=== PATIENT | female | born 1945 | race Caucasian/White ===

== ENCOUNTER 2018-03-24 18:59 | Observation (INO) ==
--- NOTE | 2018-03-24 19:08 | Emergency Department Note ---
Disposition Clinical Impression: A-fib, Chest pain, Chest wall pain, History of DVT (deep vein thrombosis) Disposition: Admitted As Inpatient Condition: Fair General Adult HPI - General Stated complaint: "afib,CP,sob" Time Seen by Provider: 03/24/18 19:02 - Related Data Home Medications Medication Instructions Recorded Confirmed Cholecalciferol (D-3) [Vitamin D] 1,000 unit PO DAILY 05/12/16 03/24/18 Levothyroxine [Synthroid] 125 mcg PO DAILY 05/12/16 03/24/18 Sertraline [Zoloft] 100 mg PO DAILY 05/12/16 03/24/18 metFORMIN [Glucophage] 500 mg PO DAILY 05/12/16 03/24/18 Albuterol Sulfate [Ventolin Hfa] 2 puff IH Q6H PRN 03/02/18 03/24/18 Calcium Carbonate/Vitamin D3 1 tab PO DAILY 03/02/18 03/24/18 [Calcium 500 + Vit D 200 Caplet] Ferrous Sulfate [Iron] 325 mg PO DAILY 03/02/18 03/24/18 Meloxicam [Meloxicam] 7.5 mg PO DAILY 03/02/18 03/24/18 Pantoprazole Sodium 40 mg PO DAILY 03/02/18 03/24/18 Rosuvastatin Calcium [Rosuvastatin 40 mg PO DAILY 03/02/18 03/24/18 Calcium] Tiotropium [Spiriva] 1 puff IH DAILY 03/02/18 03/24/18 Allergies Allergy/AdvReac Type Severity Reaction Status Date / Time doxycycline AdvReac Vomiting Verified 03/24/18 12:26 antihistamine AdvReac See Uncoded 10/02/16 16:44 Comments Past Medical History - Past Medical History Medical history: Reports: cancer, COPD, diabetes, GERD Surgical history: Reports: appendectomy, cataract, hysterectomy, knee replacement, orthopedic, other Psychiatric history: Reports: anxiety - Social History Smoking Status: Never smoker Smokeless Tobacco Status: No Alcohol use: Reports: none Drug use: Reports: none Course Vital Signs Pulse Rate 77 03/24/18 19:45 Respiratory Rate 18 03/24/18 19:45 O2 Sat by Pulse Oximetry 96 03/24/18 19:45 Temperature 98.1 F 03/24/18 23:34 Pulse Rate 68 05/03/18 23:34 Respiratory Rate 18 03/24/18 23:34 Blood Pressure 117/70 03/24/18 23:34 O2 Sat by Pulse Oximetry 96 03/24/18 23:34 Oxygen Delivery Oxygen Delivery Room Air Medical Decision Making - Lab Data Result diagrams: 03/24/18 19:17 03/24/18 19:17 Lab Results 03/24/18 03/24/18 03/24/18 Range/Units 19:17 19:17 19:24 WBC 9.6 (4.3-11.1) K/mcL RBC 4.39 (3.82-4.97) M/mcL Hgb 12.3 (11.5-15.4) g/dL Hct 37.8 (35.3-44.9) % MCV 86.1 (83.0-100.0) fL MCH 28.0 (28.0-33.3) pg MCHC 32.5 (31.6-35.5) g/dL RDW 13.5 (11.5-14.5) % Plt Count 258 (140-400) K/mcL MPV 9.5 (9.4-12.4) fL Immature Gran % 0.3 (0-4) % Seg Neutrophils % 63.5 % Lymphocytes % 25.4 % Monocytes % 7.3 % Eosinophils % 2.9 % Basophils % 0.6 % Neutrophils # 6.1 (1.6-8.9) K/mcL Lymphocytes # 2.4 (0.6-4.6) K/mcL Monocytes # 0.7 (0.0-1.3) K/mcL Eosinophils # 0.3 (0.0-0.6) K/mcL Basophils # 0.1 (0.0-0.2) K/mcL PT 23.0 H (9.4-12.1) Seconds INR 2.1 APTT 37.2 H (26.0-36.0) Seconds D-Dimer 336 (0-500) ng/mLFEU Sodium 139 (136-145) mEq/L Potassium 4.1 (3.5-5.1) mEq/L Chloride 107 (98-107) mEq/L Carbon Dioxide 24 (23-29) mEq/L BUN 22 (8-23) mg/dL Creatinine 1.02 (0.60-1.20) mg/dL Est GFR ( Amer) > 60 (> 60) Est GFR (Non-Af Amer) 53 L (> 60) BUN/Creatinine Ratio 22 (6-26) Glucose 124 H (70-105) mg/dL Calculated Osmolality 293 (280-300) Calcium 9.3 (8.6-10.3) mg/dL Troponin I < 0.03 (< 0.04) ng/mL Attestation Statement - Attestation Attestation: I examined this patient and my medical decision-making was reviewed with the Resident Physician. I agree with the documented findings, disposition and treatment plan as described except to the extent set forth below. Face to face time provided Patient to ED with MIGUELANGEL LYN. Dx with new onset afib today by PCP's office and started on xarelto. No known h/o CAD. mildly anxious upon arrival. family at bedside. ECG reviewed by me showing rate-controlled afib
[2018-03-24] MEDS ORDERED: 0.9 % Sodium Chloride 500 ML IVC ONE (19:24)
[2018-03-24] MEDS ORDERED: Aspirin 81 MG TAB.CHEW PO ONE (19:24)
[2018-03-24 19:42] LABS: Basophils # 0.1 K/mcL (0.0-0.2); Basophils % 0.6 %; Eosinophils # 0.3 K/mcL (0.0-0.6); Eosinophils % 2.9 %; Hematocrit 37.8 % (35.3-44.9); Hemoglobin 12.3 g/dL (11.5-15.4); Immature Granulocytes % 0.3 % (0-4); Lymphocytes # 2.4 K/mcL (0.6-4.6); Lymphocytes % 25.4 %; Mean Corpuscular HGB Conc 32.5 g/dL (31.6-35.5); Mean Corpuscular Volume 86.1 fL (83.0-100.0); Mean Platelet Volume 9.5 fL (9.4-12.4); Monocytes # 0.7 K/mcL (0.0-1.3); Monocytes % 7.3 %; Neutrophils # 6.1 K/mcL (1.6-8.9); Platelet Count 258 K/mcL (140-400); Red Blood Count 4.39 M/mcL (3.82-4.97); Red Cell Distribution Width 13.5 % (11.5-14.5); Segmented Neutrophils % 63.5 %
[2018-03-24 19:46] LABS: Troponin I < 0.03 ng/mL (< 0.04)
[2018-03-24 19:47] LABS: BUN/Creatinine Ratio 22 (6-26); Blood Urea Nitrogen 22 mg/dL (8-23); Calcium 9.3 mg/dL (8.6-10.3); Carbon Dioxide 24 mEq/L (23-29); Chloride 107 mEq/L (98-107); Glucose 124 mg/dL (70-105); Osmolality,Calculated 293 (280-300); Potassium 4.1 mEq/L (3.5-5.1); Sodium 139 mEq/L (136-145); eGFR For African Americans > 60 (> 60); eGFR For Non-African Americans 53 (> 60)
[2018-03-24 19:49] LABS: Activated Partial Thrombo Time 37.2 Seconds (26.0-36.0)
--- NOTE | 2018-03-24 20:02 | Emergency Department Note ---
Disposition Clinical Impression: Chest wall pain, History of DVT (deep vein thrombosis) A-fib Qualifiers: Atrial fibrillation type: unspecified Qualified Code(s): I48.91 - Unspecified atrial fibrillation Chest pain Qualifiers: Chest pain type: unspecified Qualified Code(s): R07.9 - Chest pain, unspecified Disposition: Admitted As Inpatient Condition: Fair Referrals: Dulce Maria Montoya MD [Primary Care Provider] - Time of Disposition: 20:15 Chest Pain HPI - General Chief Complaint: ED Chest Pain Stated Complaint: "afib,CP,sob" Time Seen by Provider: 03/24/18 19:02 Vital Signs Reviewed: Yes Nursing Notes Reviewed: Yes - History of Present Illness HPI Narrative: 72-year-old female who complains of new onset A. fib and chest pain that started earlier today. Patient states she was here the hospital for cardiac clearance when they took an EKG found her to be in A. fib with no prior history and directed to come to the ED. Patient stated went to her PCPs office where they took another EKG and showed A. fib was placed on xarelto. Patient then came to the ED. Patient describes the chest pain as sharp and pressure-like between her chest wall and low substernal pain as well as substernal chest pressure without radiation. Patient states the pressure lasted for about 5 minutes and went away on its own. It was worse with exertion and patient complains of associated nausea and diaphoresis and lightheadedness. Patient denies any prior history of pain like this in the past. Patient is a history of COPD, cancer, diabetes and prior provoked DVT from orthopedic knee surgery. Severity scale (1-10): 0 - Related Data Home Medications Medication Instructions Recorded Confirmed Cholecalciferol (D-3) [Vitamin D] 1,000 unit PO DAILY 05/12/16 03/02/18 Levothyroxine [Synthroid] 125 mcg PO DAILY 05/12/16 03/02/18 Sertraline [Zoloft] 100 mg PO DAILY 05/12/16 03/02/18 metFORMIN [Glucophage] 500 mg PO DAILY 05/12/16 03/02/18 Albuterol Sulfate [Ventolin Hfa] 2 puff IH Q6H PRN 03/02/18 03/02/18 Calcium Carbonate/Vitamin D3 1 tab PO DAILY 03/02/18 03/02/18 [Calcium 500 + Vit D 200 Caplet] Ferrous Sulfate [Iron] 325 mg PO DAILY 03/02/18 03/02/18 Meloxicam [Meloxicam] 7.5 mg PO DAILY 03/02/18 03/02/18 Pantoprazole Sodium 40 mg PO DAILY 03/02/18 03/02/18 Rosuvastatin Calcium [Rosuvastatin 40 mg PO DAILY 03/02/18 03/02/18 Calcium] Tiotropium [Spiriva] 1 puff IH DAILY 03/02/18 03/02/18 Allergies Allergy/AdvReac Type Severity Reaction Status Date / Time doxycycline AdvReac Vomiting Verified 03/24/18 12:26 antihistamine AdvReac See Uncoded 10/02/16 16:44 Comments All systems ED: reviewed and negative except as stated. Review of Systems: As Per HPI Constitutional: Denies: fever, chills, weakness ENT ED: Denies: congestion Cardiovascular: Reports: chest pain, palpitations, dyspnea on exertion Respiratory: Reports: cough Gastrointestinal: Reports: nausea. Denies: abdominal pain, vomiting, diarrhea Genitourinary: Denies: urgency, dysuria Musculoskeletal: Denies: back pain Endocrine: Reports: fatigue Chest Pain PMH - Past Medical History Medical history: Reports: cancer, COPD, diabetes, GERD Surgical history: Reports: appendectomy, cataract, hysterectomy, knee replacement, orthopedic, other Psychiatric history: Reports: anxiety - Social History Smoking Status: Never smoker Alcohol use: Reports: none Drug use: Reports: none Physical Exam Vital Signs Pulse Rate 77 03/24/18 19:45 Respiratory Rate 18 03/24/18 19:45 O2 Sat by Pulse Oximetry 96 03/24/18 19:45 Temperature 98 F 03/24/18 19:49 Pulse Rate 64 03/24/18 19:49 Respiratory Rate 18 03/24/18 19:49 Blood Pressure 142/85 03/24/18 19:49 O2 Sat by Pulse Oximetry 95 03/24/18 19:49 Oxygen Delivery Oxygen Delivery Room Air CONSTITUTIONAL: Well-appearing; well-nourished; A&O X 3, in mild apparent distress, currently without diaphoresis or tachypnea. HEAD: Normocephalic; atraumatic EYES: PERRL, no scleral icterus NOSE: The nose is normal in appearance without rhinorrhea NECK: No JVD or distended neck veins RESP: Normal chest excursion with respiration; breath sounds clear and equal bilaterally; no wheezes, rhonchi, or rales CARD: Regular rhythm, without murmurs, rub or gallop ABD: Non-distended; non-tender, soft, without rigidity, rebound or guarding,no pulsatile mass CHEST: Exquisitely tender to palpation along the right axillary region SKIN: Normal for age and race; warm and dry without diaphoresis ; no apparent lesions EXTREMITIES: Pulses are 2 plus and equal times 4 extremities, no peripheral edema or calf muscle pain Course - Reevaluation(s) Reevaluation #1: Departmental the patient's pain. Patient doing well. Patient's workup complete and will be admitted. Patient understands agrees treatment plan for admission. Time: 20:15 - Consultations Consultation #1: Dr. Blair the hospitalist as accepted patient for admission Time: 20:13 Vital Signs Pulse Rate 77 03/24/18 19:45 Respiratory Rate 18 03/24/18 19:45 O2 Sat by Pulse Oximetry 96 03/24/18 19:45 Temperature 98 F 03/24/18 19:49 Pulse Rate 64 03/24/18 19:49 Respiratory Rate 18 03/24/18 19:49 Blood Pressure 142/85 03/24/18 19:49 O2 Sat by Pulse Oximetry 95 03/24/18 19:49 Oxygen Delivery Oxygen Delivery Room Air Chest Pain - [facility] Narrative Medical decision making narrative: New-onset A. fib, chest pain with high concern for possible PE with history of prior DVT, ACS/MO Based on history, physical exam and/or tests that were performed, the following determinations were made on this patient. - The patient was risk stratified to determine risk for Major Adverse Cardiac Event (MACE): High Risk - The following risk stratification tool was used to help determine the patient' s level of risk or severity of disease: Heart Score 1. History (Yes) Highly suspicious (+ 2) 2. ECG (Yes) Non specific repolarization disturbance (+ 1) 3. Age (Yes) 65 years (+ 2) 4. Risk Factors (Yes) 3 risk factors or history of atherosclerotic disease (+ 2) 5. Troponin (Yes) Within normal limit (0) - Disposition Hospital Admission - Bed Type Admission: Floor Bed with Telemetry The following information highlights the evidence that was incorporated into my medical decision making to determine the appropriate diagnostic and/or therapeutic course. - The HEART Score was used to determine that the patient was at High Risk. These patients have been shown to have an approximate risk of 50.1% of MACE over the next 6 weeks. ([place] 2013) - The HEART Score is a validated tool designed for risk stratification specifically of chest pain patients in the ED to predict the risk of MACE within 6 weeks. The score uses the patients history, initial ECG, age, risk factors, and initial troponin. Data was derived from 3 studies, identifying patients as low risk and validating the low rate of 6-week MACE. (HEART Score 2008)([place] 2009)([place] 2012)([place] 2015) The following information is important in the patient's care and was communicated with them and/or their family. - I communicated with the patient and shared with them graphically that they have a High Risk of MACE over the next 4-6 weeks. The appropriate disposition of the patient. - Admission Status - Floor, with Heart Monitoring Patient understands and agrees to treatment plan. Patient was administered aspirin and started Xarelto early today prescribed by Dr. Pichardo's office. Patient has not had any chest pain during her time of evaluation here. - Lab Data Lab results reviewed: Yes I reviewed the patient's lab results. Lab results narrative: Short CBC 03/24/18 Range/Units 19:17 WBC 9.6 (4.3-11.1) K/mcL Hgb 12.3 (11.5-15.4) g/dL Hct 37.8 (35.3-44.9) % Plt Count 258 (140-400) K/mcL Neutrophils # 6.1 (1.6-8.9) K/mcL BMP 03/24/18 Range/Units 19:17 Sodium 139 (136-145) mEq/L Potassium 4.1 (3.5-5.1) mEq/L Chloride 107 (98-107) mEq/L Carbon Dioxide 24 (23-29) mEq/L BUN 22 (8-23) mg/dL Creatinine 1.02 (0.60-1.20) mg/dL Glucose 124 H (70-105) mg/dL Calcium 9.3 (8.6-10.3) mg/dL Cardiac Enzymes 03/24/18 Range/Units 19:17 Troponin I < 0.03 (< 0.04) ng/mL Result diagrams: 03/24/18 19:17 03/24/18 19:17 Lab Results 03/24/18 03/24/18 03/24/18 Range/Units 19:17 19:17 19:24 WBC 9.6 (4.3-11.1) K/mcL RBC 4.39 (3.82-4.97) M/mcL Hgb 12.3 (11.5-15.4) g/dL Hct 37.8 (35.3-44.9) % MCV 86.1 (83.0-100.0) fL MCH 28.0 (28.0-33.3) pg MCHC 32.5 (31.6-35.5) g/dL RDW 13.5 (11.5-14.5) % Plt Count 258 (140-400) K/mcL MPV 9.5 (9.4-12.4) fL Immature Gran % 0.3 (0-4) % Seg Neutrophils % 63.5 % Lymphocytes % 25.4 % Monocytes % 7.3 % Eosinophils % 2.9 % Basophils % 0.6 % Neutrophils # 6.1 (1.6-8.9) K/mcL Lymphocytes # 2.4 (0.6-4.6) K/mcL Monocytes # 0.7 (0.0-1.3) K/mcL Eosinophils # 0.3 (0.0-0.6) K/mcL Basophils # 0.1 (0.0-0.2) K/mcL APTT 37.2 H (26.0-36.0) Seconds D-Dimer 336 (0-500) ng/mLFEU Sodium 139 (136-145) mEq/L Potassium 4.1 (3.5-5.1) mEq/L Chloride 107 (98-107) mEq/L Carbon Dioxide 24 (23-29) mEq/L BUN 22 (8-23) mg/dL Creatinine 1.02 (0.60-1.20) mg/dL Est GFR ( Amer) > 60 (> 60) Est GFR (Non-Af Amer) 53 L (> 60) BUN/Creatinine Ratio 22 (6-26) Glucose 124 H (70-105) mg/dL Calculated Osmolality 293 (280-300) Calcium 9.3 (8.6-10.3) mg/dL Troponin I < 0.03 (< 0.04) ng/mL - Radiology Data Radiology results reviewed: Yes I reviewed the patient's radiology results. Chest X-Ray 03/24/18 19:24 IMPRESSION: No acute cardiopulmonary disease. D/ / 03/24/2018 19:56:39 Davie Veloz MD / [facility] [email or web address] Interpreting Provider: Davie Veloz MD - EKG Data EKG attestation: Yes I reviewed and interpreted this EKG. EKG results narrative: EKG taken 03/24/2018 at 1904 hrs. shows A. fib at a rate of 78 bpm with no acute ST elevations or depressions any leads, no QRS widening QT prolongation. EKG is different from previous EKG taken in 05/04/2016 which shows a sinus bradycardia Heart Score - Score History: Highly Suspicious EKG: Non Specific repolarisation Disturbance Age: Greater than 65 Risk Factors: Equal/Greater than 3 risk factor or history of atherosclerotic disease Troponin: Less than normal limit HEART Score Total: 7
[2018-03-24] MEDS ORDERED: *HR* FentaNYL (PF) 100 MCG/2 ML VIAL IVP ONE (20:05)
[2018-03-24] MEDS ORDERED: *HR* Dextrose 50 % in Water (Syg) 50 ML SYRINGE IVP PRN (23:20)
[2018-03-24] MEDS ORDERED: Dextrose Gel 15 GM/37.5 ML TUBE PO PRN ×2 (23:20)
[2018-03-24] MEDS ORDERED: D5% in Water 1,000 ML IVC PRN (23:20)
[2018-03-24] MEDS ORDERED: Naloxone 0.4 MG/ML INJ IVP PRN (23:24)
[2018-03-24] MEDS ORDERED: Acetaminophen 325 MG TABLET PO PRN (23:24)
--- NOTE | 2018-03-24 23:29 | Internal Med History&Physical ---
Date of Encounter: 03/25/18 Time of Encounter: 23:27 Internal Medicine - H&P: HPI Chief complaint: A. fib Admitted From: Emergency Dept Plans for Post Hospital Care: Home History of present illness: Ms. Haas is a 72 year old female with history of diabetes, depression, hypothyroidism, COPD who presents with complaints of chest pain. The patient apparently was being seen for preoperative clearance and was found to be in A. fib. She has no history of it. She is planned an abdominal surgery by Dr. Vanegas to remove polyps or a part of her intestine. She later went to her PCP and another EKG showed A. fib again and the patient was put on Xarelto. She went home and started having chest pain that is described as soreness and pressure-like midsternal with no radiation. This lasted about 5 minutes or so and went away on its own. She also describes exertional dyspnea and nausea and diaphoresis and feeling lightheaded. She came to the ED to get evaluated and was again found to be in A. fib. Rate was controlled. Denies any headache, blurry vision, numbness, tingling, abdominal pain, diarrhea, constipation, urinary symptoms. In the ED laboratory workup was unremarkable including close that were not elevated. Past Med Surg Social Fam HX - Past Medical History Medical history: cancer, COPD, diabetes, GERD Psychiatric history: anxiety - Past Surgical History Surgical History: appendectomy, cataract, hysterectomy, knee replacement, orthopedic, other - Social History Smoking Status: Never smoker Smokeless Tobacco Status: No Alcohol use: none Drug use: none - Family History Mother Living Status: Cause of : cancer Father Living Status: Internal Medicine - H&P: Meds Cholecalciferol (D-3) [Vitamin D] 1,000 unit PO DAILY 05/12/16 [History] Levothyroxine [Synthroid] 125 mcg PO DAILY 05/12/16 [History] Sertraline [Zoloft] 100 mg PO DAILY 05/12/16 [History] metFORMIN [Glucophage] 500 mg PO DAILY 05/12/16 [History] Albuterol Sulfate [Ventolin Hfa] 2 puff IH Q6H PRN 03/02/18 [History] Calcium Carbonate/Vitamin D3 [Calcium 500 + Vit D 200 Caplet] 1 tab PO DAILY 10/09 [History] Ferrous Sulfate [Iron] 325 mg PO DAILY 03/02/18 [History] Meloxicam [Meloxicam] 7.5 mg PO DAILY 03/02/18 [History] Pantoprazole Sodium 40 mg PO DAILY 03/02/18 [History] Rosuvastatin Calcium [Rosuvastatin Calcium] 40 mg PO DAILY 03/02/18 [History] Tiotropium [Spiriva] 1 puff IH DAILY 03/02/18 [History] 3 Allergy/AdvReac Type Severity Reaction Status Date / Time doxycycline AdvReac Vomiting Verified 03/24/18 12:26 antihistamine AdvReac See Uncoded 10/02/16 16:44 Comments All Systems PM: A 10-system review of systems was performed and is negative for pertinent findings except as documented above in the HPI. Review of systems: All systems reviewed are negative except as mentioned above - Constitutional Vitals: Temp Pulse Resp BP Pulse Ox 98 F 72 22 145/68 98 03/24/18 19:49 03/24/18 22:41 03/24/18 22:41 03/24/18 22:41 03/24/18 22:41 Exam: GEN: NAD HEENT: AT, NC, No cyanosis, oral mucosa is moist, No JVD Lymphatics: No lymphadenoapthy Eyes: Extrocular muscles intact, anicteric CVS: Iregular, S1, S2, No m/r/g RESP: CTAB ABD: Soft, NT, ND, +BS EXT: No edema, No rashes, 2+ DP NEURO: Nonfocal, CN II-XII intact, No focal motor or sensory deficits Psych: Cooperative, Not anxious or depressed Internal Med - H&P Results - Labs CBC & Chem 7: 03/24/18 19:17 03/24/18 19:17 - Assessment and plan (1) A-fib Current Visit: Yes Status: Acute Assessment and plan: New onset. rate controlled. [id number] score would qualify her for anticoag. Given Xarelto in the outpatient setting earlier today. check TSH. check an echo for valvular vs non-valvular afib and start anticoag based on that. Qualifiers: Atrial fibrillation type: unspecified Qualified Code(s): I48.91 - Unspecified atrial fibrillation (2) Chest pain Current Visit: Yes Status: Acute Assessment and plan: Admit to tele. chest pain is actually reproducible. Given the whole picture, will trend cardiac enzymes. check lipid panel, TSH, A1c. Stress test in am. echo pending. SL nitro PRN. Given ASA 324 mg in ED. Qualifiers: Chest pain type: unspecified Qualified Code(s): R07.9 - Chest pain, unspecified (3) Diabetes mellitus Current Visit: Yes Status: Acute Assessment and plan: Insulin sliding scale. accucheks Qualifiers: Diabetes mellitus type: type 2 Diabetes mellitus halfway insulin use: without halfway use Diabetes mellitus complication status: without complication Qualified Code(s): E11.9 - Type 2 diabetes mellitus without complications (4) HLD (hyperlipidemia) Current Visit: Yes Status: Acute Assessment and plan: c/w statin Qualifiers: Hyperlipidemia type: unspecified Qualified Code(s): E78.5 - Hyperlipidemia , unspecified (5) Hypothyroidism Current Visit: Yes Status: Acute Assessment and plan: c/w home synthroid. check TSH Qualifiers: Hypothyroidism type: unspecified Qualified Code(s): E03.9 - Hypothyroidism , unspecified (6) Depression Current Visit: Yes Status: Acute Assessment and plan: resume home anti-depressants Qualifiers: Depression Type: unspecified Qualified Code(s): F32.9 - Major depressive disorder, single episode, unspecified (7) DVT prophylaxis Current Visit: Yes Status: Acute Assessment and plan: heparin SQ - Time Spent With Patient Total time spent is greater than 50% in coordination of care (as documented) at patient's floor/unit and/or counseling patient:
[2018-03-24 23:38] LABS: INR 2.1
[2018-03-25] MEDS: Insulin LISPRO 300 UNITS/3 ML VIAL SQ SCH ×2 (00:31→10:07)
[2018-03-25 01:32] LABS: Basophils # 0.1 K/mcL (0.0-0.2); Basophils % 0.7 %; Eosinophils # 0.3 K/mcL (0.0-0.6); Eosinophils % 3.5 %; Hematocrit 35.4 % (35.3-44.9); Hemoglobin 11.3 g/dL (11.5-15.4); Immature Granulocytes % 0.1 % (0-4); Lymphocytes % 32.9 %; Mean Corpuscular HGB Conc 31.9 g/dL (31.6-35.5); Mean Corpuscular Volume 87.6 fL (83.0-100.0); Mean Platelet Volume 9.2 fL (9.4-12.4); Monocytes # 0.7 K/mcL (0.0-1.3); Platelet Count 201 K/mcL (140-400); Red Blood Count 4.04 M/mcL (3.82-4.97); Red Cell Distribution Width 13.6 % (11.5-14.5); Segmented Neutrophils % 54.8 %
[2018-03-25 01:52] LABS: BUN/Creatinine Ratio 27 (6-26); Blood Urea Nitrogen 25 mg/dL (8-23); Carbon Dioxide 26 mEq/L (23-29); Chloride 108 mEq/L (98-107); Chol/HDL Ratio 3.6 (0-4.9); Cholesterol 155 mg/dL (< 200); Glucose 109 mg/dL (70-105); HDL Cholesterol 43 mg/dL (40-59); LDL Cholesterol,Calculated 75 mg/dL (0-99); Magnesium 2.3 mg/dL (1.6-2.6); Osmolality,Calculated 295 (280-300); Potassium 3.9 mEq/L (3.5-5.1); Sodium 140 mEq/L (136-145); Triglycerides 185 mg/dL (< 150); eGFR For African Americans > 60 (> 60); eGFR For Non-African Americans 59 (> 60)
[2018-03-25] MEDS ORDERED: *HR* Heparin 5,000 UNIT/ML VIAL SQ SCH (06:00)
[2018-03-25] MEDS ORDERED: Regadenoson 0.4 MG/5 ML SYRINGE IVP ONE (06:35)
[2018-03-25 08:53] LABS: Estimated Average Glucose 134 mg/dl; Hemoglobin A1C 6.3 %
[2018-03-25] MEDS ORDERED: Tiotropium 18 MCG inhalation IH SCH (09:00)
[2018-03-25] MEDS ORDERED: [Calcium 500-Vit D3 PO SCH (09:00)
[2018-03-25] MEDS ORDERED: Cholecalciferol (D-3) 1,000 UNIT TABLET PO SCH (09:00)
--- NOTE | 2018-03-25 09:00 | Electrocardiograph Report ---
[place] [id number] Test Date: 2018-03-24 Pat Name: Jeri Haas Department: 107 Room: 3B Gender: F Director Field Services: GERARDO : 1945 Requested By: Audrey Blair Order Number: [id number] Reading MD: Charanjit Wang Measurements Intervals [place] Rate: 97 P: AK: 0 QRS: 28 QRSD: 71 T: 0 QT: 342 QTc: 396 Interpretive Statements ATRIAL FIBRILLATION Poor R wave progression Electronically Signed On 03-25-2018 8:58:10 EDT by Charanjit Wang
[2018-03-25 11:48] VITALS: BP 133/74
--- NOTE | 2018-03-25 12:54 | Discharge Summary ---
- NOTES TO OUTPATIENT PROVIDER Notes to Outpatient Provider: Follow-up with primary care physician within next 7 days. Follow-up with cardiology. Resume xarelto, continue metoprolol. Follow-up final report of echocardiogram with primary care physician Orders not resulted at time of discharge: Pending orders 03/24/18 23:23 NM ronnie perf SPECT multi [NM] Routine Date of Encounter: 03/25/18 Time of Encounter: 12:52 - Discharge Diagnosis (1) A-fib Priority: Primary Status: Acute Assessment and Plan: New onset. rate controlled. Qualifiers: Atrial fibrillation type: unspecified Qualified Code(s): I48.91 - Unspecified atrial fibrillation (2) Chest pain Priority: Secondary Status: Acute Assessment and Plan: Chest pain is reproducible. echo pending. SL nitro PRN. . Qualifiers: Chest pain type: unspecified Qualified Code(s): R07.9 - Chest pain, unspecified (3) Diabetes mellitus Priority: Secondary Status: Acute Qualifiers: Diabetes mellitus type: type 2 Diabetes mellitus skilled nursing insulin use: without skilled nursing use Diabetes mellitus complication status: without complication Qualified Code(s): E11.9 - Type 2 diabetes mellitus without complications (4) HLD (hyperlipidemia) Priority: Secondary Status: Acute Qualifiers: Hyperlipidemia type: unspecified Qualified Code(s): E78.5 - Hyperlipidemia , unspecified (5) Hypothyroidism Priority: Secondary Status: Acute Qualifiers: Hypothyroidism type: unspecified Qualified Code(s): E03.9 - Hypothyroidism , unspecified (6) Depression Priority: Secondary Status: Acute Qualifiers: Depression Type: unspecified Qualified Code(s): F32.9 - Major depressive disorder, single episode, unspecified (7) DVT prophylaxis Priority: Secondary Status: Acute Hospital course: Ms. Haas is a 72 year old female with history of diabetes not insulin dependent, depression, hypothyroidism, COPD not oxygen dependent, GERD, who presented with complaints of chest pain. The patient apparently was being seen for preoperative clearance and was found to be in A. fib. She had no history of it. She is planned an abdominal surgery by Dr. Vanegas to remove polyps or a part of her intestine. She later went to her PCP and another EKG showed A. fib again and the patient was put on Xarelto. She went home and started having chest pain that was described as soreness and pressure-like midsternal with no radiation. This lasted about 5 minutes and went away on its own. She also described exertional dyspnea and nausea and diaphoresis and feeling lightheaded. She came to the ED to get evaluated and was again found to be in A. fib. Rate was controlled. Denies any headache, blurry vision, numbness, tingling, abdominal pain, diarrhea, constipation, urinary symptoms. In the ED laboratory workup was unremarkable including close that were not elevated. [id number] score was 3 would qualify her for anticoag. Given Xarelto in the outpatient setting Stress test was performed: Perfusion imaging was negative for ischemia or infarct. Pharmacologic ECG was non diagnostic for ischemia. Patient had no chest pain with stress. Gated EF = >70%. There is no evidence of TID. Echocardiogram is pending. The patient was given the option to wait until the echocardiogram was reported but prefers to be discharged in to follow its report with her primary care physician. She was just started on metoprolol and will be discharged on 25 g twice a day, we will resume xarelto. The patient will discuss with Dr. Vanegas holding her xarelto prior to the surgery - Time Spent with Patient Total time spent providing and/or coordinating discharge services: Greater than 30 minutes (40 min) - Discharge Medications Prescriptions: Metoprolol Tartrate 25 mg PO BID #60 tablet Rivaroxaban [Xarelto] 15 mg PO 1700 #30 tablet Home Medications: Cholecalciferol (D-3) [Vitamin D] 1,000 unit PO DAILY 05/12/16 [History] Levothyroxine [Synthroid] 125 mcg PO Q48H 05/12/16 [History] Sertraline [Zoloft] 100 mg PO DAILY 05/12/16 [History] metFORMIN [Glucophage] 500 mg PO DAILY 05/12/16 [History] Albuterol Sulfate [Ventolin Hfa] 2 puff IH Q6H PRN 03/02/18 [History] Calcium Carbonate/Vitamin D3 [Calcium 500-Vit D3 200 Caplet] 1 tab PO DAILY 10/09 [History] Ferrous Sulfate [Iron] 325 mg PO DAILY 03/02/18 [History] Pantoprazole Sodium 40 mg PO DAILY 03/02/18 [History] Rosuvastatin Calcium 40 mg PO DAILY 03/02/18 [History] Tiotropium [Spiriva] 1 puff IH DAILY 03/02/18 [History] Fluticasone/Salmeterol [Advair Hfa 115-21 Mcg Inhaler] 2 puff IH BID 03/25/18 [ History] Metoprolol Tartrate 25 mg PO BID #60 tablet 03/25/18 [Rx] Rivaroxaban [Xarelto] 15 mg PO 1700 #30 tablet 03/25/18 [Rx] Allergies/Adverse Reactions: 3 Allergy/AdvReac Type Severity Reaction Status Date / Time cefdinir AdvReac Diarrhea Verified 03/25/18 11:56 doxycycline AdvReac Vomiting Verified 03/25/18 11:54 antihistamine AdvReac See Uncoded 10/02/16 16:44 Comments Date of admission: 03/24/18 22:05 Primary care physician: Dulce Maria Montoya - Constitutional Vitals: Temp Pulse Resp BP Pulse Ox 97.9 F 79 16 133/74 99 03/25/18 11:46 03/25/18 11:46 03/25/18 11:46 03/25/18 11:46 03/25/18 11:46 General appearance: Present: A&O X 3 - Head Head exam: Present: atraumatic, normocephalic - Eye Eye exam: Present: PERRL, conjuntiva pink, sclera anicteric Pupils: Present: PERRL - Neck Neck exam general surgery: Present: supple, trachea midline. Absent: lymphadenopathy - Respiratory Respiratory exam: Present: CTAB. Absent: accessory muscle use, rales, rhonchi, wheezes - Cardiovascular Cardiovascular exam: Present: irregular rhythm, RRR, +S1, +S2. Absent: diastolic murmur, gallop, rubs, systolic murmur - GI/Abdominal GI/Abdominal exam: Present: normal bowel sounds, soft, no peritoneal signs. Absent: distended, tenderness - Extremities Exam Extremities exam: Present: warm, radial pulses palpable and symmetrical. Absent : calf tenderness, cyanotic, pedal edema - Neurological Exam Neurological exam: Present: CN II-XII intact, oriented X3, no focal deficits. Absent: pronater drift, facial droop, speech deficit - Skin Skin exam: Present: dry, intact - Patient Status Disposition: Home, Self-Care Condition: Fair Overall status at discharge: patient is back to baseline - Discharge Instructions Follow Up With: Dulce Maria Montoya MD [Primary Care Provider] - - Diet and Activity Activity: increase activity as tolerated Diet: diabetic diet
== END 2018-03-25 13:55 | disposition home or self-care (01) ==
LOC: 3BNU 18:59 → EMEROO 18:59 → 3BNU 23:00
PROVIDERS: ADMIT Internal Medicine; ATTEND Internal Medicine

== ENCOUNTER 2018-04-29 06:22 | Inpatient (IN) ==
[2018-04-29] MEDS ORDERED: cefOXitin 2,000 MG in Water for inj. (sterile) 20 ML 20 ML IVP ONE (06:52)
[2018-04-29] MEDS ORDERED: Albuterol 2.5 MG/3 ML NEBULIZER IH ONE (06:57)
[2018-04-29] MEDS ORDERED: Ringers Solution, Lactated 1,000 ML IVC SCH (07:00)
[2018-04-29] MEDS ORDERED: Dexamethasone 4 MG/ML VIAL ONE (07:01)
[2018-04-29] MEDS ORDERED: Ondansetron 4 MG/2 ML VIAL ONE (07:01)
[2018-04-29] MEDS ORDERED: *HR* Rocuronium Bromide 50 MG/5 ML VIAL ONE (07:01)
[2018-04-29] MEDS ORDERED: Lidocaine -MPF 4% 5 ML AMPUL ONE (07:01)
[2018-04-29] MEDS ORDERED: *HR* Succinylcholine 200 MG/10 ML VIAL IVP ONE (07:01)
[2018-04-29] MEDS ORDERED: Lidocaine -MPF 2% 2 ML VIAL ONE (07:01)
[2018-04-29] MEDS ORDERED: *HR* Propofol 200 MG/20 ML VIAL IVP ONE (07:01)
[2018-04-29] MEDS ORDERED: *HR* FentaNYL (PF) 100 MCG/2 ML VIAL ONE ×4 (07:01→10:27)
--- NOTE | 2018-04-29 07:02 | Anesthesia Evaluation PreOp ---
Date of Encounter: 04/29/18 Time of Encounter: 07:00 - Past History Planned Operation: Robotic Ascending Colon Resection Cardiac History: Hyperlipidemia, Arrhythmia (H/O A-Fib) Pulmonary History: Asthma, Snore SATELLITE DISH TECHNICIAN History: Denies Any Significant HX Other Medical History: Diabetes Type II, Thyroid, GERD, Other (anxiety) Anesthesia History: No Prior Anesthetic Complications, Past Anesthesia ( hysterectomy, Jackson fundoplication) Alcohol Use: none Drug use: none Medications and Allergies Cholecalciferol (D-3) [Vitamin D] 1,000 unit PO DAILY 05/12/16 [History] Levothyroxine [Synthroid] 125 mcg PO Q48H 05/12/16 [History] Sertraline [Zoloft] 100 mg PO DAILY 05/12/16 [History] metFORMIN [Glucophage] 500 mg PO DAILY 05/12/16 [History] Albuterol Sulfate [Ventolin Hfa] 2 puff IH Q6H PRN 03/02/18 [History] Calcium Carbonate/Vitamin D3 [Calcium 500-Vit D3 200 Caplet] 1 tab PO DAILY 10/09 [History] Pantoprazole Sodium 40 mg PO DAILY 03/02/18 [History] Rosuvastatin Calcium 40 mg PO DAILY 03/02/18 [History] Tiotropium [Spiriva] 1 puff IH DAILY 03/02/18 [History] Fluticasone/Salmeterol [Advair Hfa 115-21 Mcg Inhaler] 2 puff IH BID 03/25/18 [ History] Metoprolol Tartrate 25 mg PO BID #60 tablet 03/25/18 [Rx] Rivaroxaban [Xarelto] 20 mg PO DAILY 04/29/18 [History] 3 Allergy/AdvReac Type Severity Reaction Status Date / Time doxycycline AdvReac Vomiting Verified 03/25/18 11:54 - Meds/Allergy Pre-op Review Medications Reviewed: Yes Allergies Reviewed: Yes Beta Blockers on Current Med List: Yes If Beta Blockers taken, Date/Time (Last Dose taken): 04/29/2018 at 0530 Anesthesia Results - Labs Laboratory Tests 03/24/18 03/25/18 03/25/18 19:24 01:15 01:15 WBC 9.2 Hgb 11.3 L Hct 35.4 Plt Count 201 PT 23.0 H INR 2.1 APTT 37.2 H Sodium 140 Potassium 3.9 BUN 25 H Creatinine 0.93 - Imaging EKG: report reviewed (03/24/[address] & T-WAVE ABNORMALITY ABNORMAL RHYTHM ECG) Additional studies: 03/25/2018 Echo Impressions: LVEF 50-55%. No pulmonary hypertension. No significant valvular dysfunction. 03/25/2018 Stress Impression: Perfusion imaging was negative for ischemia or infarct. Pharmacologic ECG was non diagnostic for ischemia. Patient had no chest pain with stress. Gated EF = >70%. There is no evidence of TID. Anesthesia Exam O2 Sat Height 1.63 m Height 1.63 m Height 1.63 m Weight 94.801 kg Weight 94.801 kg Weight 94.801 kg O2 Sat by Pulse Oximetry 97 O2 Sat by Pulse Oximetry 97 O2 Sat by Pulse Oximetry 97 Vital Signs Temp Pulse Resp BP Pulse Ox 98.1 F 72 18 117/73 97 04/29/18 06:44 04/29/18 06:44 04/29/18 06:44 04/29/18 06:44 04/29/18 06:44 Blood Glucose* 108 Height: 5'4'' Weight: 209 lbs NPO (# of Hours): 8 Pain Scale: 0 Pain Scale Used: Numeric (1 - 10) - HEENT Pupil (Motor): EOMI Mallampati: II Teeth: Normal Oral Opening: Greater than 3 - SATELLITE DISH TECHNICIAN LOC: Oriented SATELLITE DISH TECHNICIAN Motor: Normal RUE, Normal LUE, Normal RLE, Normal LLE, Normal Face SATELLITE DISH TECHNICIAN Sensory: Normal: RUE, LUE, RLE, LLE, Face - Cardiac Rhythm: Irregular Murmur: None - Pulmonary Breath Sounds: bilateral Clear Respiratory Effort: Symmetrical Anesthesia Assess/Plan ASA Score: 3 Modified Eduin Scale for Level of Consciousness: Cooperative, oriented, and tranquil Anesthetic Plan: General Monitoring Plan: Standard Monitors Recovery Plan: PACU
--- NOTE | 2018-04-29 08:06 | History & Physical Report ---
Date of Encounter: 04/29/18 Time of Encounter: 08:06 24 Hour HP Update - Instructions Instructions: If the History and Physical is less than 30 days old and was completed prior to A.M. admission and or procedure and has NOT been updated on calendar day of procedure please complete this update prior to performing procedure. - Update Patient reports changes in Medical Condition: No Changes in examination, assessment, or condition: No Changes in Medication: No Preop tests/diagnostics Reviewed: Yes Surgery Remains Indicated: Yes Consent for Planned Operative Procedure(s) Verified: Yes - Pre-Operative Checklist Preoperative Checklist Indicated: Yes Prophylactic Antibiotic Ordered: Yes Home Medications Include Beta Lata: Yes Beta Lata Taken Today (Day of Surgery): Yes
[2018-04-29] MEDS ORDERED: Ondansetron 4 MG/2 ML VIAL IVP PRN (08:39)
[2018-04-29] MEDS ORDERED: *HR* HYDROmorphone (PF) 1 MG/ML SYRINGE IVP PRN (08:39)
[2018-04-29] MEDS ORDERED: Naloxone 0.4 MG/ML INJ IVP PRN (08:39)
[2018-04-29] MEDS ORDERED: *HR* Promethazine 25 MG/ML VIAL IVP PRN (08:39)
[2018-04-29] MEDS ORDERED: *HR* Meperidine 25 MG/ML SYRINGE IVP PRN (08:39)
[2018-04-29] MEDS ORDERED: *HR* PHENYLEPHRINE 1,000 MCG/10 ML SYRINGE IVP ONE (08:40)
[2018-04-29] MEDS ORDERED: Neostigmine Methylsulfate 3 MG/3 ML SYRINGE ONE (08:57)
[2018-04-29] MEDS ORDERED: Acetaminophen IV 1,000 MG/100 ML INFUS..BTL ONE (09:22)
--- NOTE | 2018-04-29 11:08 | Anesthesia Evaluation Post Op ---
Date of Encounter: 04/29/18 Time of Encounter: 11:07 - Vital Signs Vital Signs: Vital Signs/O2 Sat/Glucose, Most Recent Temp Pulse Resp BP Pulse Ox 97.3 F L 59 16 112/55 96 04/29/18 11:05 04/29/18 11:05 04/29/18 11:05 04/29/18 11:05 04/29/18 11:05 Blood Glucose* 140 - Lungs Lungs: Clear Ascult./Percussion - Airway Airway: Non-obstructed - Cardiovascular Regular Rate - Mental Status Mental Status: Alert & Oriented, Answers Appropriately - Pain Pain Scale used: Otilia (Faces) - Nausea Vomiting Nausea Vomiting: Not Present - Hydration Hydration: NPO - Discharge PostOp Status: Transfer Patient to floor
[2018-04-29] MEDS ORDERED: OXYCODONE Oral CONC 10 MG/0.5 ML ORAL.SYG SL PRN (14:15)
[2018-04-29] MEDS: OXYCODONE Oral CONC 10 MG/0.5 ML ORAL.SYG SL PRN (15:12)
[2018-04-29] MEDS: 0.9 % Sodium Chloride 1,000 ML IVC SCH (15:12)
--- NOTE | 2018-04-29 16:25 | Operative Note ---
Date of procedure: 04/29/18 Pre-op diagnosis: Ascending colon polyp with high-grade dysplasia Post-op diagnosis: same Procedure: Robotic ascending colectomy Anesthesia: GISELAA Surgeon: Roger Vanegas Was there an research assistant member present: Yes Assistant Merchandise Manager: Chelly Pérez Estimated blood loss (cc): 5 Specimen: Ascending colon Condition: stable Disposition: floor Procedure in Detail: After informed consent, the patient was taken the operating room placed in the supine position. After adequate sedation and anesthesia the abdomen was prepped and draped. [address] the umbilicus and a Verres needle was inserted into the abdomen. A pneumoperitoneum was created. 3 individual 8 mm cannulas were placed along with a 13 mm cannula. Once in place the Madronei XI robot was brought over the patient's right hip and positioned. The ports were connected the robot. Attention was replaced. Small bowel was swept to the left lateral position. The cecum and ileum were grasped and the vascular pedicle was identified. A window was created. The duodenum was readily identified and kept out of harm's way. The vascular pedicle was taken with a vessel sealer. The remainder of the colon was dissected free from the retroperitoneum. Once the transverse mesocolon had been divided to the level of the transverse colon it was stapled with a robotic stapler. The same was performed for the terminal ileum. Once that was completed the remainder of the lateral attachments were taken down with a vessel sealer. Colon was parked over the patient's right abdomen. The terminal ileum was then placed next to the transverse colon. 2 enterotomies were created and the colon and the small bowel and a 45 mm stapler was fired down both limbs. The common enterotomy was closed with 2-0 silk suture 2. Once completed the ports were removed and the pneumoperitoneum was evacuated. A small midline incision was made and the specimen was retrieved through a wound protection bag. Once finished the midline was closed with a looped PDS suture and the 13 mm cannula was closed with a 0 Vicryl. Najma were placed in the skin.
[2018-04-29] MEDS: Ipratropium/Albuterol Neb 3 ML IH SCH ×2 (16:50→22:05)
[2018-04-29] MEDS: Ondansetron 4 MG/2 ML VIAL IVP SCH ×3 (17:09→23:55)
[2018-04-29] MEDS: Acetaminophen IV 1,000 MG/100 ML INFUS..BTL IVPB SCH ×2 (19:00→23:55)
[2018-04-30] MEDS: 0.9 % Sodium Chloride 1,000 ML IVC SCH ×2 (01:16→11:46)
[2018-04-30] MEDS: Ondansetron 4 MG/2 ML VIAL IVP SCH ×3 (03:39→11:47)
[2018-04-30] MEDS: Ipratropium/Albuterol Neb 3 ML IH SCH ×4 (04:27→22:50)
[2018-04-30] MEDS: OXYCODONE Oral CONC 10 MG/0.5 ML ORAL.SYG SL PRN ×2 (04:41→23:23)
[2018-04-30] MEDS: Acetaminophen IV 1,000 MG/100 ML INFUS..BTL IVPB SCH ×2 (06:13→11:46)
[2018-04-30 06:46] LABS: Basophils % 0.2 %; Eosinophils % 0.1 %; Hematocrit 33.5 % (35.3-44.9); Hemoglobin 10.7 g/dL (11.5-15.4); Immature Granulocytes % 0.3 % (0-4); Lymphocytes # 1.5 K/mcL (0.6-4.6); Lymphocytes % 13.9 %; Mean Corpuscular HGB Conc 31.9 g/dL (31.6-35.5); Mean Corpuscular Hemoglobin 27.7 pg (28.0-33.3); Mean Corpuscular Volume 86.8 fL (83.0-100.0); Mean Platelet Volume 9.1 fL (9.4-12.4); Monocytes # 0.8 K/mcL (0.0-1.3); Monocytes % 7.6 %; Neutrophils # 8.6 K/mcL (1.6-8.9); Platelet Count 194 K/mcL (140-400); Red Blood Count 3.86 M/mcL (3.82-4.97); Red Cell Distribution Width 14.2 % (11.5-14.5); Segmented Neutrophils % 77.9 %
[2018-04-30 07:10] LABS: BUN/Creatinine Ratio 16 (6-26); Blood Urea Nitrogen 13 mg/dL (8-23); Calcium 8.9 mg/dL (8.6-10.3); Carbon Dioxide 25 mEq/L (23-29); Chloride 107 mEq/L (98-107); Glucose 111 mg/dL (70-105); Osmolality,Calculated 287 (280-300); Potassium 4.1 mEq/L (3.5-5.1); Sodium 138 mEq/L (136-145); eGFR For African Americans > 60 (> 60); eGFR For Non-African Americans > 60 (> 60)
[2018-04-30] MEDS: *HR* Metformin 500 MG TABLET PO SCH (08:04)
--- NOTE | 2018-04-30 11:27 | General Surgery Progress Note ---
<ChristianoTiburcio R - Last Filed: 04/30/18 14:33> Date of Encounter: 04/30/18 Time of Encounter: 08:55 - Assessment and Plan (1) Colonic adenoma Current Visit: Yes Status: Acute POD #1 s/p Robotic Ascending Colectomy with Dr. Vanegas Pathology pending PLAN: Tolerating clear liquid diet - advance to Full liquid diet Saline lock IV fluids Supportive care and pain control Ambulate in hallways Incentive spirometry every 1 hour while awake Repeat AM labs - CBC, BMP (2) A-fib Current Visit: Yes Status: Chronic Currently RRR - Continue metoprolol. Will resume Xarelto on Wednesday or Wednesday Qualifiers: Atrial fibrillation type: paroxysmal Qualified Code(s): I48.0 - Paroxysmal atrial fibrillation (3) Diabetes mellitus Current Visit: Yes Status: Acute Continue home Metformin Qualifiers: Diabetes mellitus type: type 2 Diabetes mellitus shelter insulin use: without bed bug exterminator use Diabetes mellitus complication status: without complication Qualified Code(s): E11.9 - Type 2 diabetes mellitus without complications (4) HLD (hyperlipidemia) Current Visit: Yes Status: Acute Continue home statin Qualifiers: Hyperlipidemia type: unspecified Qualified Code(s): E78.5 - Hyperlipidemia , unspecified (5) Hypothyroidism Current Visit: Yes Status: Acute Continue synthroid Qualifiers: Hypothyroidism type: unspecified Qualified Code(s): E03.9 - Hypothyroidism , unspecified (6) DVT prophylaxis Current Visit: Yes Status: Acute SCDs and subq Heparin BID Subjective Patient reports: no new complaints, still having pain, tolerating liquids well, voiding w/o difficulty, no flatus, no bowel movement, afebrile Narrative: Pt improving. Still having pain, but responding to medication. No N/V. Tolerating clear liquid diet well, especially broth. Still not reporting much appetite though. Objective Vital Signs - Last 8 Hours Temp Pulse Resp BP Pulse Ox 04/30/18 09:10 16 93 04/30/18 07:25 98.1 F 78 16 138/78 93 Intake and Output 04/29/18 04/30/18 04/30/18 23:59 07:59 15:59 Intake Total 420 / 420 1100 / 1100 Output Total 500 / 500 Balance 420 / 420 600 / 600 Intake: IV Fluids 100 / 100 1100 / 1100 0.9 % Sodium Chloride 1,000 ML 1000 / 1000 @ 100 mls/hr IVC .Q10H MARK Rx#: [id number] Ofirmev 1,000 mg/100 ml 1,000 100 / 100 100 / 100 mg In 100 ml @ 400 mls/hr IVPB Q6HR MARK Rx#:[id number] Oral 320 / 320 0 / 0 Output: Urine 500 / 500 Other: Meal clears Percent of Meal Consumed 40% # Voids 1 Weight 94.8 kg Patient Weight 04/30/18 23:59 Weight 94.8 kg - General physical appearance well developed, well nourished, no distress - Eyes normal ocular movement - Respiratory normal respiratory effort, clear to auscultation - Cardiovascular Cardiovascular exam: Present: RRR, no murmurs/rubs/gallops - Abdomen Abdomen: Present: bowel sounds present (hypoactive), soft, tender ( appropriately tender). Absent: distended, rebound, rigid - Incision Incision: Present: clean and dry, intact - Integumentary no rash, no growths, no abnormal pigmentation - Neurologic CN 2-12 grossly intact - Psychiatric oriented to time, oriented to person, oriented to place, speech is normal, memory intact - Labs 04/30/18 06:30 04/30/18 06:30 Diabetes panel 04/30/18 Range/Units 06:30 Sodium 138 (136-145) mEq/L Potassium 4.1 (3.5-5.1) mEq/L Chloride 107 (98-107) mEq/L Carbon Dioxide 25 (23-29) mEq/L BUN 13 (8-23) mg/dL Creatinine 0.80 (0.60-1.20) mg/dL Glucose 111 H (70-105) mg/dL Calcium 8.9 (8.6-10.3) mg/dL Calcium panel 04/30/18 Range/Units 06:30 Calcium 8.9 (8.6-10.3) mg/dL Pituitary panel 04/30/18 Range/Units 06:30 Sodium 138 (136-145) mEq/L Potassium 4.1 (3.5-5.1) mEq/L Chloride 107 (98-107) mEq/L Carbon Dioxide 25 (23-29) mEq/L BUN 13 (8-23) mg/dL Creatinine 0.80 (0.60-1.20) mg/dL Glucose 111 H (70-105) mg/dL Calcium 8.9 (8.6-10.3) mg/dL Adrenal panel 04/30/18 Range/Units 06:30 Sodium 138 (136-145) mEq/L Potassium 4.1 (3.5-5.1) mEq/L Chloride 107 (98-107) mEq/L Carbon Dioxide 25 (23-29) mEq/L BUN 13 (8-23) mg/dL Creatinine 0.80 (0.60-1.20) mg/dL Glucose 111 H (70-105) mg/dL Calcium 8.9 (8.6-10.3) mg/dL - VTE Documentation of Mechanical Device: Intermittent pneumatic compression device Consult Discharge Plan - Plan Referrals: Soledad Dawn CNP [Advanced Practice Nurse] - 05/13/18 8:30 am <Adrian Hager - Last Filed: 05/01/18 10:05> Date of Encounter: 04/30/18 Objective Vital Signs - Last 8 Hours Temp Pulse Resp BP Pulse Ox 05/01/18 09:07 18 92 05/01/18 08:19 98.1 F 86 18 115/72 92 05/01/18 04:28 98.8 F 90 18 118/70 92 Intake and Output 04/30/18 05/01/18 05/01/18 23:59 07:59 15:59 Intake Total 120 / 120 Output Total 0 / 0 500 / 500 Balance 120 / 120 -500 / -500 Intake: Oral 120 / 120 Output: Urine 0 / 0 500 / 500 Other: Meal Dinner Percent of Meal Consumed 10% Weight 96.8 kg Patient Weight 05/01/18 23:59 Weight 96.8 kg - Labs 05/01/18 06:07 05/01/18 06:07 Diabetes panel 05/01/18 Range/Units 06:07 Sodium 137 (136-145) mEq/L Potassium 4.0 (3.5-5.1) mEq/L Chloride 105 (98-107) mEq/L Carbon Dioxide 27 (23-29) mEq/L BUN 9 (8-23) mg/dL Creatinine 0.80 (0.60-1.20) mg/dL Glucose 105 (70-105) mg/dL Calcium 9.1 (8.6-10.3) mg/dL Calcium panel 05/01/18 Range/Units 06:07 Calcium 9.1 (8.6-10.3) mg/dL Pituitary panel 05/01/18 Range/Units 06:07 Sodium 137 (136-145) mEq/L Potassium 4.0 (3.5-5.1) mEq/L Chloride 105 (98-107) mEq/L Carbon Dioxide 27 (23-29) mEq/L BUN 9 (8-23) mg/dL Creatinine 0.80 (0.60-1.20) mg/dL Glucose 105 (70-105) mg/dL Calcium 9.1 (8.6-10.3) mg/dL Adrenal panel 05/01/18 Range/Units 06:07 Sodium 137 (136-145) mEq/L Potassium 4.0 (3.5-5.1) mEq/L Chloride 105 (98-107) mEq/L Carbon Dioxide 27 (23-29) mEq/L BUN 9 (8-23) mg/dL Creatinine 0.80 (0.60-1.20) mg/dL Glucose 105 (70-105) mg/dL Calcium 9.1 (8.6-10.3) mg/dL - Attending Attestation I examined this patient and my medical decision-making was reviewed with the Resident Physician. I agree with the documented findings, disposition and treatment plan as described except to the extent set forth below. I reviewed the above assessment and evaluation and agree with the above plan. Will advance to full liquids. Patient denies any BM or flatus. No nausea or vomiting. The patient would like to wait another day prior to discharge home which I think is appropriate. Await for further return of bowel function.
[2018-04-30] MEDS ORDERED: Acetaminophen 325 MG TABLET PO PRN (14:30)
[2018-04-30] MEDS: Ondansetron ODT 4 MG TAB.RAPDIS SL PRN (20:26)
[2018-04-30] MEDS: *HR* Heparin 5,000 UNIT/ML VIAL SQ SCH (21:26)
[2018-05-01] MEDS: Ipratropium/Albuterol Neb 3 ML IH SCH ×2 (04:04→09:07)
[2018-05-01] MEDS: *HR* Heparin 5,000 UNIT/ML VIAL SQ SCH (05:42)
[2018-05-01 06:49] LABS: Hematocrit 33.5 % (35.3-44.9); Hemoglobin 10.7 g/dL (11.5-15.4); Mean Corpuscular HGB Conc 31.9 g/dL (31.6-35.5); Mean Corpuscular Hemoglobin 27.6 pg (28.0-33.3); Mean Corpuscular Volume 86.6 fL (83.0-100.0); Mean Platelet Volume 9.3 fL (9.4-12.4); Platelet Count 174 K/mcL (140-400); Red Blood Count 3.87 M/mcL (3.82-4.97)
[2018-05-01 07:10] LABS: BUN/Creatinine Ratio 11 (6-26); Blood Urea Nitrogen 9 mg/dL (8-23); Calcium 9.1 mg/dL (8.6-10.3); Carbon Dioxide 27 mEq/L (23-29); Chloride 105 mEq/L (98-107); Glucose 105 mg/dL (70-105); Osmolality,Calculated 283 (280-300); Sodium 137 mEq/L (136-145); eGFR For African Americans > 60 (> 60); eGFR For Non-African Americans > 60 (> 60)
[2018-05-01] MEDS: *HR* Metformin 500 MG TABLET PO SCH (09:12)
[2018-05-01] MEDS: Ondansetron ODT 4 MG TAB.RAPDIS SL PRN (09:39)
[2018-05-01 12:31] VITALS: BP 116/74
--- NOTE | 2018-05-01 13:41 | Discharge Summary ---
<Tiburcio Alvarado - Last Filed: 05/01/18 13:59> - NOTES TO OUTPATIENT PROVIDER Notes to Outpatient Provider: s/p Robotic Ascending Colectomy Orders not resulted at time of discharge: Pending orders 04/29/18 10:25 Surgical Pathology [PTH] Routine Date of Encounter: 05/01/18 Time of Encounter: 07:50 - Discharge Diagnosis (1) Colonic adenoma Priority: Primary Status: Acute (2) A-fib Priority: Secondary Status: Chronic Qualifiers: Atrial fibrillation type: paroxysmal Qualified Code(s): I48.0 - Paroxysmal atrial fibrillation (3) Diabetes mellitus Priority: Secondary Status: Acute Qualifiers: Diabetes mellitus type: type 2 Diabetes mellitus terminal operator insulin use: without senior living use Diabetes mellitus complication status: without complication Qualified Code(s): E11.9 - Type 2 diabetes mellitus without complications (4) HLD (hyperlipidemia) Priority: Secondary Status: Acute Qualifiers: Hyperlipidemia type: unspecified Qualified Code(s): E78.5 - Hyperlipidemia , unspecified (5) Hypothyroidism Priority: Secondary Status: Acute Qualifiers: Hypothyroidism type: unspecified Qualified Code(s): E03.9 - Hypothyroidism , unspecified (6) DVT prophylaxis Priority: Secondary Status: Acute General Surgery Exam Initial Vital Signs Temp Pulse Resp BP Pulse Ox 98.1 F 72 18 117/73 97 04/29/18 06:44 04/29/18 06:44 04/29/18 06:44 04/29/18 06:44 04/29/18 06:44 - General physical appearance well developed, well nourished, no distress - Eyes normal ocular movement - Respiratory normal expansion, normal respiratory effort, clear to auscultation - Cardiovascular Cardiovascular exam: Present: RRR, no murmurs/rubs/gallops - Abdomen Abdomen general surgery: Present: bowel sounds present, soft, tender ( appropriately) - Incision Incision: Present: clean and dry, intact - Integumentary Integumentary general surgery: Present: warm and dry, no abnormal pigmentation - Neurologic Present: CN 2-12 grossly intact, normal coordination - Psychiatric Psychiatric general surgery: Present: appropriate, oriented to person, oriented to place, oriented to time, speech is normal, memory intact - Hospital Course Hospital course: Ms. Haas is a 72 year old female who underwent Robotic Ascending Colectomy with Dr. Vanegas due to colonic adenoma. Final pathology is still pending. The patient progressed well met all post-op milestones including tolerating diet, ambulation, return of bowel function, and symptom control. She can be discharged home. - Time Spent with Patient Total time spent providing and/or coordinating discharge services: Less than 30 minutes - Discharge Medications Prescriptions: Ondansetron ODT [Zofran ODT] 4 mg SL Q6HR PRN #15 tab.rapdis PRN Reason: Nausea And Vomiting OxyCODONE/APAP 7.5/325 [Percocet 7.5/325 MG] 1 each PO Q6HR PRN 7 Days #26 tablet PRN Reason: Pain Docusate Sodium [Colace] 100 mg PO BID #30 capsule Ibuprofen 800 mg PO TID #42 tablet Home Medications: Cholecalciferol (D-3) [Vitamin D] 1,000 unit PO DAILY 05/12/16 [History] Levothyroxine [Synthroid] 125 mcg PO Q48H 05/12/16 [History] Sertraline [Zoloft] 100 mg PO DAILY 05/12/16 [History] metFORMIN [Glucophage] 500 mg PO DAILY 05/12/16 [History] Albuterol Sulfate [Ventolin Hfa] 2 puff IH Q6H PRN 03/02/18 [History] Calcium Carbonate/Vitamin D3 [Calcium 500-Vit D3 200 Caplet] 1 tab PO DAILY 10/09 [History] Pantoprazole Sodium 40 mg PO DAILY 03/02/18 [History] Rosuvastatin Calcium 40 mg PO DAILY 03/02/18 [History] Tiotropium [Spiriva] 1 puff IH DAILY 03/02/18 [History] Fluticasone/Salmeterol [Advair Hfa 115-21 Mcg Inhaler] 2 puff IH BID 03/25/18 [ History] Metoprolol Tartrate 25 mg PO BID #60 tablet 03/25/18 [Rx] Rivaroxaban [Xarelto] 20 mg PO DAILY 04/29/18 [History] Docusate Sodium [Colace] 100 mg PO BID #30 capsule 05/01/18 [Rx] Ibuprofen 800 mg PO TID #42 tablet 05/01/18 [Rx] Ondansetron ODT [Zofran ODT] 4 mg SL Q6HR PRN #15 tab.rapdis 05/01/18 [Rx] OxyCODONE/APAP 7.5/325 [Percocet 7.5/325 MG] 1 each PO Q6HR PRN 7 Days #26 tablet 05/01/18 [Rx] Allergies/Adverse Reactions: 3 Allergy/AdvReac Type Severity Reaction Status Date / Time doxycycline AdvReac Vomiting Verified 03/25/18 11:54 Date of admission: 04/29/18 11:19 Primary care physician: Dulce Maria Montoya Discharging clinician: Tiburcio Alvarado Anticipated date of discharge: 05/01/18 Procedures and tests throughout hospitalization: Robotic Ascending Colectomy Labs on day of discharge: Labs from last 24 hours 05/01/18 05/01/18 06:07 06:07 WBC 10.2 RBC 3.87 Hgb 10.7 L Hct 33.5 L MCV 86.6 MCH 27.6 L MCHC 31.9 RDW 14.0 Plt Count 174 MPV 9.3 L Sodium 137 Potassium 4.0 Chloride 105 Carbon Dioxide 27 BUN 9 Creatinine 0.80 Est GFR ( Amer) > 60 Est GFR (Non-Af Amer) > 60 BUN/Creatinine Ratio 11 Glucose 105 Calculated Osmolality 283 Calcium 9.1 - Patient Status Disposition: Home, Self-Care Condition: Fair Functional capacity at discharge: independent ambulation Overall status at discharge: patient is progressing back to baseline - Discharge Instructions Follow Up With: Soledad Dawn CNP [Advanced Practice Nurse] - 05/13/18 8:30 am Additional Instructions: General Surgery Discharge Instructions: 1. No pushing, pulling, or lifting greater than 15 pounds for 2 weeks 2. You may shower. Keep incision near belly-button covered with band-aid for the next few days 3. You may return to driving when you are off narcotics and are safe to react in a car 4. Take ibuprofen every 8 hours for discomfort. If this does not relieve your pain you may take Percocet. Take as prescribed. Do not take more than prescribed. Do not drink alcohol while on narcotics 5. Take stool softeners (Colace) or Miralax while on narcotics 6. Report any fevers greater than 100.5 F, increased abdominal discomfort, drainage that looks like pus, increased redness or pain at the surgical site, or any vomiting 7. Report any pain to calves, shortness of breath, or rapid heartbeat 8. Follow-up in the office as directed - Diet and Activity Activity: increase activity as tolerated Diet: advance to your usual diet <Adrian Hager - Last Filed: 05/01/18 14:30> Orders not resulted at time of discharge: Pending orders 04/29/18 10:25 Surgical Pathology [PTH] Routine Date of Encounter: 05/01/18 General Surgery Exam Initial Vital Signs Temp Pulse Resp BP Pulse Ox 98.1 F 72 18 117/73 97 04/29/18 06:44 04/29/18 06:44 04/29/18 06:44 04/29/18 06:44 04/29/18 06:44 - Hospital Course Hospital course: Ms. Haas is a 72 year old female - Time Spent with Patient Total time spent providing and/or coordinating discharge services: Date of admission: 04/29/18 11:19 Primary care physician: Dulce Maria Montoya Labs on day of discharge: Labs from last 24 hours 05/01/18 05/01/18 06:07 06:07 WBC 10.2 RBC 3.87 Hgb 10.7 L Hct 33.5 L MCV 86.6 MCH 27.6 L MCHC 31.9 RDW 14.0 Plt Count 174 MPV 9.3 L Sodium 137 Potassium 4.0 Chloride 105 Carbon Dioxide 27 BUN 9 Creatinine 0.80 Est GFR ( Amer) > 60 Est GFR (Non-Af Amer) > 60 BUN/Creatinine Ratio 11 Glucose 105 Calculated Osmolality 283 Calcium 9.1 - Attending Attestation I examined this patient and my medical decision-making was reviewed with the Resident Physician. I agree with the documented findings, disposition and treatment plan as described except to the extent set forth below. I reviewed the above and agree with the above-mentioned plan.
== END 2018-05-01 15:19 | disposition home or self-care (01) | DRG 331 ==
LOC: SAMDAY 06:22 → 3ANU 11:19
PROVIDERS: ADMIT Surgery; ATTEND Surgery

== ENCOUNTER 2020-07-15 21:17 | Observation (INO) ==
[2020-07-15 22:05] LABS: Bilirubin,Urine Negative (Negative); Blood,Urine Moderate (Negative); Clarity,Urine Clear (Clear); Color,Urine Yellow (Yellow); Glucose,Urine (UA) Normal (Normal); Ketones,Urine Negative (Negative); Leukocyte Esterase,Urine Small (Negative); Nitrite,Urine Negative (Negative); PH,Urine 5.5 pH Units (5.0-8.0); Protein,Urine Negative (Neg-Trace); Specific Gravity,Urine >= 1.030 (1.010-1.025); Urobilinogen,Urine Normal (Normal)
[2020-07-15 22:07] LABS: Bacteria,Urine Few per hpf (None-Few); Squamous Epithelial Cell,Urine Moderate per hpf (None-Few)
[2020-07-15 22:42] LABS: Basophils # 0.1 K/mcL (0.0-0.2); Basophils % 0.6 %; Eosinophils # 0.2 K/mcL (0.0-0.6); Eosinophils % 1.9 %; Hematocrit 33.6 % (35.3-44.9); Hemoglobin 10.6 g/dL (11.5-15.4); Immature Granulocytes % 0.2 % (0-4); Lymphocytes # 1.9 K/mcL (0.6-4.6); Lymphocytes % 22.2 %; Mean Corpuscular HGB Conc 31.5 g/dL (31.6-35.5); Mean Corpuscular Hemoglobin 27.7 pg (28.0-33.3); Mean Platelet Volume 8.7 fL (9.4-12.4); Monocytes # 0.6 K/mcL (0.0-1.3); Monocytes % 7.4 %; Neutrophils # 5.8 K/mcL (1.6-8.9); Platelet Count 196 K/mcL (140-400); Red Blood Count 3.82 M/mcL (3.82-4.97); Red Cell Distribution Width 14.6 % (11.5-14.5); Segmented Neutrophils % 67.7 %; White Blood Count 8.6 K/mcL (4.3-11.1)
[2020-07-15 22:48] LABS: INR 2.8; Prothrombin Time 31.8 Seconds (9.4-12.1)
[2020-07-15 23:04] LABS: BUN/Creatinine Ratio 15 (6-26); Blood Urea Nitrogen 16 mg/dL (8-23); Calcium 9.2 mg/dL (8.6-10.3); Carbon Dioxide 25 mEq/L (23-29); Chloride 106 mEq/L (98-107); Glucose 109 mg/dL (70-105); Osmolality,Calculated 288 (280-300); Sodium 138 mEq/L (136-145); eGFR For African Americans > 60 (> 60); eGFR For Non-African Americans 51 (> 60)
[2020-07-16] MEDS ORDERED: cefTRIAXone 1,000 MG in 0.9 % Sodium Chloride Mini Bag 100 ML IVPB ONE (00:04)
[2020-07-16] MEDS ORDERED: Acetaminophen 325 MG TABLET PO ONE ×2 (00:05→12:01)
[2020-07-16] MEDS ORDERED: Ondansetron 4 MG/2 ML VIAL IVP PRN (01:44)
[2020-07-16] MEDS ORDERED: Naloxone 0.4 MG/ML INJ IVP PRN (01:44)
[2020-07-16] MEDS ORDERED: Dextrose Gel 15 GM/37.5 ML TUBE PO PRN ×2 (02:43)
[2020-07-16] MEDS ORDERED: D5% in Water 1,000 ML IVC PRN (02:43)
[2020-07-16] MEDS ORDERED: *HR* Dextrose 50 % in Water (Vial) 50 ML VIAL IVP PRN (02:43)
[2020-07-16 03:37] LABS: Hematocrit 32.1 % (35.3-44.9); Mean Corpuscular HGB Conc 31.2 g/dL (31.6-35.5); Mean Corpuscular Hemoglobin 27.3 pg (28.0-33.3); Mean Corpuscular Volume 87.7 fL (83.0-100.0); Mean Platelet Volume 8.8 fL (9.4-12.4); Platelet Count 197 K/mcL (140-400); Red Blood Count 3.66 M/mcL (3.82-4.97); Red Cell Distribution Width 14.6 % (11.5-14.5); White Blood Count 8.8 K/mcL (4.3-11.1)
[2020-07-16 03:38] LABS: INR 2.4; Prothrombin Time 27.8 Seconds (9.4-12.1)
[2020-07-16 03:44] LABS: BUN/Creatinine Ratio 15 (6-26); Blood Urea Nitrogen 13 mg/dL (8-23); Calcium 9.2 mg/dL (8.6-10.3); Carbon Dioxide 23 mEq/L (23-29); Chloride 108 mEq/L (98-107); Glucose 109 mg/dL (70-105); Osmolality,Calculated 289 (280-300); Potassium 3.7 mEq/L (3.5-5.1); Sodium 139 mEq/L (136-145); eGFR For African Americans > 60 (> 60); eGFR For Non-African Americans > 60 (> 60)
[2020-07-16 07:30] VITALS: BP 139/61
[2020-07-16] MEDS: Insulin LISPRO 300 UNITS/3 ML VIAL SQ SCH ×2 (07:33→12:00)
[2020-07-16] MEDS ORDERED: Cholecalciferol (D-3) 1,000 UNIT (25MCG) TABLET PO SCH (09:00)
[2020-07-16] MEDS ORDERED: Famotidine 20 MG TABLET PO SCH (09:00)
[2020-07-16] MEDS ORDERED: *HR* Amiodarone 200 MG TABLET PO SCH (09:00)
[2020-07-16] MEDS ORDERED: Ibuprofen 600 MG TABLET PO ONE (12:03)
[2020-07-16] MEDS ORDERED: Insulin LISPRO 300 UNITS/3 ML VIAL SQ SCH (21:00)
== END 2020-07-16 12:44 | disposition home or self-care (01) ==
LOC: 3BNU 21:17 → EMEROOARM 21:17 → 3BNU 07-16 01:23
PROVIDERS: ADMIT Family Medicine; ATTEND Family Medicine